=== PATIENT | female | born 1955 | race Caucasian/White ===

== ENCOUNTER 2016-10-15 10:28 | Emergency (ER) | payer OTHER ==
[2016-10-15 11:24] VITALS: BP 147/83
[2016-10-15] MEDS ORDERED: cefTRIAXone VIAL(*) 250 MG VIAL IM ONE (11:45)
[2016-10-15] MEDS ORDERED: Lidocaine 1%* 5 ML VIAL INJ ONE (11:46)
--- NOTE | 2016-10-15 11:47 | UC ---
Bite Injury/Animal HPI - HPI Summary HPI Summary: pt reports being bit by her own dog on 10/13/16 to left distal foot and toe # 4. Pt states that the dogs vaccinations are UTD and that her tetanus is UTD, . Pt c/o erythema, tenderness, that is worsening since onset to top of left foot. Also, c/ o blistering and erythema to left 4th toe. 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 Available for Observation: Yes - Risk Factors Infection/Sepsis Risk Factors: Delay in Initial Treatment - Allergies/Home Medications Allergies/Adverse Reactions: Allergies Allergy/AdvReac Type Severity Reaction Status Date / Time Sulfa Antibiotics Allergy Hives Verified 10/15/16 11:24 Home Medications: Home Medications Esomeprazole Magnesium [Nexium 24Hr] 20 mg PO DAILY PRN 10/15/16 [History Confirmed 10/15/16] Ibuprofen TAB* [Advil TAB*] 400 mg PO Q6H PRN 10/15/16 [History Confirmed ] PMH/Surg Hx/FS Hx/Imm Hx Previously Healthy: Yes - Surgical History Surgical History: Yes Surgery Procedure, Year, and Place: NECK SX X 2 - Family History Known Family History: Positive: Other - positive [facility] for skin abrasion - Social History Alcohol Use: Rare Substance Use Type: None Smoking Status (MU): Never Smoked Tobacco - Immunization History Most Recent Tetanus Shot: 07/2015 Review of Systems Constitutional: Negative Skin: Other - erythema, tenderness, blisters Eyes: Negative ENT: Negative Respiratory: Negative Cardiovascular: Negative Gastrointestinal: Negative Genitourinary: Negative Motor: Negative Neurovascular: Negative Musculoskeletal: Arthralgia, Edema, Myalgia Neurological: Negative Psychological: Negative All Other Systems Reviewed And Are Negative: Yes Physical Exam Triage Information Reviewed: Yes Appearance: Well-Appearing Vital Signs: Initial Vital Signs Temp 99.1 F 10/15/16 11:16 Pulse 77 10/15/16 11:16 Resp 16 10/15/16 11:16 BP 147/83 10/15/16 11:16 Pulse Ox 98 10/15/16 11:16 Vital Signs Reviewed: Yes Eye Exam: Normal ENT Exam: Normal Neck exam: Normal Respiratory Exam: Normal Cardiovascular Exam: Normal Musculoskeletal Exam: Other Musculoskeletal: Positive: Edema @ - left foot, Other: - erythema, blistering left 4th Neurological Exam: Normal Psychological Exam: Normal Skin Exam: Other - erythema, swelling, tenderness, blistering left 4th toe, Bite Injury Course/Dx - Differential Dx/Diagnosis Differential Diagnosis/HQI/PQRI: Fracture, Puncture, Superficial Infection Provider Diagnoses: dog bite,. cellulitis Discharge - Discharge Plan Condition: Stable Disposition: HOME Prescriptions: Amoxicillin/Clavulanate TAB* [Augmentin TAB 875*] 875 mg PO BID #21 tab Patient Education Materials: Animal Bite (ED), Cellulitis (ED) Referrals: Emmy Mary MD [Primary Care Provider] - 1 Day
== END 2016-10-15 12:31 | disposition home or self-care (01) ==
LOC: UCCORT 10:28
DX: S91.352A Open bite, left foot, initial encounter (principal); W54.0XXA Bitten by dog, initial encounter; Y92.9 Unspecified place or not applicable; L03.116 Cellulitis of left lower limb
CPT/HCPCS: 96372; 99202; G0463; J0696

== ENCOUNTER 2016-10-16 09:03 | Emergency (ER) | payer OTHER ==
[2016-10-16 09:51] VITALS: BP 134/72
--- NOTE | 2016-10-16 10:32 | UC ---
HPI Wound/Suture Re-check - HPI Summary HPI Summary: 61 yo female see here yesterday with an infected dog bite to left middle toe Had shot of rocefin Has had 2 doses of augmentin no fever or chills since her prior vist no worsening of pain/redness - History Of Current Complaint Chief Complaint: UCSkin Stated Complaint: RE-CK TOE INFECTION/CELLULITIS Time Seen by Provider: 10/16/16 10:12 Hx Obtained From: Patient Onset/Duration: Sudden Onset, Lasting Days Severity: Moderate Pain Intensity: 4 Pain Scale Used: 0-10 Numeric - Allergies/Home Medications Allergies/Adverse Reactions: Allergies Allergy/AdvReac Type Severity Reaction Status Date / Time Sulfa Antibiotics Allergy Hives Verified 10/16/16 09:51 PMH/Surg Hx/FS Hx/Imm Hx Previously Healthy: Yes - Surgical History Surgical History: Yes Surgery Procedure, Year, and Place: NECK SX X 2 - Family History Known Family History: Positive: Hypertension, Other - positive [facility] for skin abrasion - Social History Alcohol Use: Rare Substance Use Type: None Smoking Status (MU): Never Smoked Tobacco - Immunization History Most Recent Tetanus Shot: 07/2015 Review of Systems Constitutional: Negative Skin: Negative Eyes: Negative ENT: Negative Respiratory: Negative Cardiovascular: Negative Gastrointestinal: Negative Genitourinary: Negative Motor: Negative Neurovascular: Negative Musculoskeletal: Arthralgia Neurological: Negative Psychological: Negative All Other Systems Reviewed And Are Negative: Yes Physical Exam Triage Information Reviewed: Yes Appearance: Well-Appearing, No Pain Distress, Well-Nourished Vital Signs: Initial Vital Signs Temp 98.4 F 10/16/16 09:49 Pulse 86 10/16/16 09:49 Resp 14 10/16/16 09:49 BP 134/72 10/16/16 09:49 Pulse Ox 99 10/16/16 09:49 Vital Signs Reviewed: Yes Eyes: Positive: Conjunctiva Clear ENT: Positive: Hearing grossly normal. Negative: Nasal congestion, Nasal drainage, Trismus, Muffled/hoarse voice Neck: Positive: Nontender, No Lymphadenopathy Respiratory: Positive: Lungs clear, Normal breath sounds, No respiratory distress Cardiovascular: Positive: RRR, No Murmur Neurological: Positive: Alert Psychological Exam: Normal Course/Dx - Course Course Of Treatment: xr (-) for fx. aware of continued need for close follow up - Differential Dx - Laceration/Wound Provider Diagnoses: cellulitis left food. infected dog bite Discharge - Discharge Plan Condition: Stable Disposition: HOME Patient Education Materials: Cellulitis (ED) Referrals: Usman CAMACHO,Emmy [Primary Care Provider] - 1 Day Additional Instructions: continue current treatment recheck in 24-48 hours recheck sooner if symptoms worsen Images Feet (Multiple View): 1 - dorsum left foot 2 - toe bright red 3 - PW 4 - dorsum of foot red and swollen to this point
--- NOTE | 2016-10-16 10:44 | RAD ---
Indication: Dog bite to the left foot third digit. 3 views of the left foot demonstrates no fracture. No other bone or joint abnormality is identified. IMPRESSION: Soft tissue swelling without evidence of fracture.
== END 2016-10-16 10:56 | disposition home or self-care (01) ==
LOC: UCCORT 09:03
DX: S91.332D Puncture wound without foreign body, left foot, subsequent encounter (principal); L03.116 Cellulitis of left lower limb; W54.0XXD Bitten by dog, subsequent encounter; Z88.2 Allergy status to sulfonamides
CPT/HCPCS: 99211; G0463

== ENCOUNTER 2017-02-25 08:26 | Emergency (ER) | payer OTHER ==
[2017-02-25 08:49] VITALS: BP 142/69
--- NOTE | 2017-02-25 09:26 | UC ---
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 Her doctor changed the SHOAIB inhibitor to lisinirpil she was taking previously in Jan b/c of a dry annoying cough. Cough has progressed and she does not believe it was due to bradley BP med. Dry cough, not productive. no congestion. here with her . has to take a 3 hr plane trip in 3 days and she is concerned b/c terrible coughing spells she gets in to. + wheezing. has a nebulizer at home. she has had to use albuterol for similar sx in past with good results. she was hoping for albuterol rx. - History of Current Complaint Chief Complaint: UCRespiratory Stated Complaint: COUGH Time Seen by Provider: 02/25/17 09:09 Hx Last Menstrual Period: age 50 - Allergies/Home Medications Allergies/Adverse Reactions: Allergies Allergy/AdvReac Type Severity Reaction Status Date / Time Sulfa Antibiotics Allergy Hives Verified 02/25/17 08:49 Home Medications: Home Medications Losartan TAB* [Cozaar TAB*] 25 mg PO QPM 02/25/17 [History Confirmed 02/25/17] Pantoprazole Sodium [Protonix] 40 mg PO QAM 02/25/17 [History Confirmed 02/25/17 ] Ranitidine HCl [Zantac] 150 mg PO QPM 02/25/17 [History Confirmed 02/25/17] PMH/Surg Hx/FS Hx/Imm Hx Previously Healthy: Yes Cardiovascular History: Hypertension GI/ History: Gastroesophageal Reflux - Surgical History Surgical History: Yes Surgery Procedure, Year, and Place: NECK SX X 2 - Family History Known Family History: Positive: Hypertension, Other - positive [facility] for skin abrasion - Social History Alcohol Use: Rare Substance Use Type: None Smoking Status (MU): Never Smoked Tobacco - Immunization History Most Recent Tetanus Shot: 07/2015 Review of Systems Constitutional: Fatigue Skin: Negative Eyes: Negative ENT: Negative Respiratory: Cough Cardiovascular: Negative Gastrointestinal: Negative Genitourinary: Negative Motor: Negative Neurovascular: Negative Musculoskeletal: Negative Neurological: Negative Psychological: Negative Is Patient Immunocompromised?: No All Other Systems Reviewed And Are Negative: Yes Physical Exam Triage Information Reviewed: Yes Appearance: No Pain Distress - really very pleasant. here with her ., Well-Nourished Vital Signs: Initial Vital Signs Temp 98.4 F 02/25/17 08:43 Pulse 80 02/25/17 08:43 Resp 18 02/25/17 08:43 BP 142/69 02/25/17 08:43 Pulse Ox 99 02/25/17 08:43 Vital Signs Reviewed: Yes Eye Exam: Normal ENT: Positive: Hearing grossly normal, Pharyngeal erythema - +PND, no exudate, TMs normal. Negative: Tonsillar swelling, Tonsillar exudate Dental Exam: Normal Neck exam: Normal Neck: Positive: Supple, Nontender, No Lymphadenopathy Respiratory: Positive: Lungs clear, No respiratory distress, No accessory muscle use, Decreased breath sounds. Negative: Crackles, Rhonchi, Stridor, Wheezing Cardiovascular Exam: Normal Cardiovascular: Positive: RRR, No Murmur, Pulses Normal Abdominal Exam: Normal Abdomen Description: Positive: Nontender, Soft Musculoskeletal Exam: Normal Neurological Exam: Normal Psychological Exam: Normal Skin Exam: Normal UC Diagnostic Evaluation - Laboratory O2 Sat by Pulse Oximetry: 99 Respiratory Course/Dx - Differential Dx/Diagnosis Differential Diagnosis/HQI/PQRI: Asthma, Bronchitis, Lower Resp Infection, Sinusitis Provider Diagnoses: bronchitis Discharge - Discharge Plan Condition: Stable Disposition: HOME Prescriptions: Albuterol 2.5MG/3ML (0.083%)* [Ventolin 2.5 MG/3 ML NEB.KURT*] 2.5 mg INH Q4H PRN #1 neb.kurt PRN Reason: Cough Albuterol HFA INHALER* [Ventolin HFA Inhaler*] 2 puff INH Q4H PRN #1 mdi PRN Reason: Cough Benzonatate CAP* [Tessalon 100 MG CAP*] 100 mg PO TID PRN #30 cap PRN Reason: Cough Methylprednisolone [Medrol Dosepak 4 MG*] 4 mg PO DAILY #1 honey Patient Education Materials: Acute Bronchitis (ED) Referrals: Emmy Mary MD [Primary Care Provider] - 5 Days Additional Instructions: We discussed risks of prednisone including but not limited to anxiety, agitation , insomnia, GI upset, elevated blood pressures and blood sugar readings, adrenal crisis and avascular necrosis of the hip. If your symptoms worsen while you are on your trip, you can go to an Urgent Care or ER whereever you are. I would recommend a chest xray if your symptoms persist. Drink lots of fluids and get plenty of water.
== END 2017-02-25 09:48 | disposition home or self-care (01) ==
LOC: UCCORT 08:26
DX: J40 Bronchitis, not specified as acute or chronic (principal); I10 Essential (primary) hypertension; Z88.2 Allergy status to sulfonamides; Z88.1 Allergy status to other antibiotic agents
CPT/HCPCS: 99212; G0463

== ENCOUNTER 2018-08-06 08:38 | Emergency (ER) | payer BC, OTHER ==
[2018-08-06 09:07] VITALS: BP 135/84
--- NOTE | 2018-08-06 09:52 | UC ---
Respiratory Complaint HPI - HPI Summary HPI Summary: cough x 1 week cough is productive, with yellow sputum , worse at night , nasal congestion, pnd, wheezing chest tightness, no sore throat, no fever, no chills - History of Current Complaint Chief Complaint: UCRespiratory Stated Complaint: COUGH,ST Time Seen by Provider: 08/06/18 09:06 Hx Obtained From: Patient Hx Last Menstrual Period: age 50 Onset/Duration: Gradual Onset, Lasting Weeks - 1, Still Present Timing: Constant Severity Initially: Moderate Severity Currently: Moderate Pain Intensity: 3 Pain Scale Used: 0-10 Numeric Character: Cough: Productive Aggravating Factors: Exertion, Deep Breaths Alleviating Factors: Nothing Associated Signs And Symptoms: Positive: Wheezing, URI, Nasal Congestion. Negative: Dyspnea, Fever, Hemoptysis, Dizziness, Calf Pain, Calf Swelling - Allergies/Home Medications Allergies/Adverse Reactions: Allergies Allergy/AdvReac Type Severity Reaction Status Date / Time Sulfa (Sulfonamide Allergy Hives Verified 08/06/18 09:07 Antibiotics) Home Medications: Home Medications Irbesartan 40 mg PO DAILY 08/06/18 [History Confirmed 08/06/18] PMH/Surg Hx/FS Hx/Imm Hx - Additional Past Medical History Additional PMH: chronic lymphocitic leukemia - Surgical History Surgical History: Yes Surgery Procedure, Year, and Place: NECK SX X 2. [email or web address] - Family History Known Family History: Positive: Hypertension, Other - positive [facility] for skin abrasion - Social History Alcohol Use: Rare Substance Use Type: None Smoking Status (MU): Never Smoked Tobacco - Immunization History Most Recent Tetanus Shot: 07/2015 Review of Systems All Other Systems Reviewed And Are Negative: Yes Constitutional: Positive: Negative Skin: Positive: Negative Eyes: Positive: Negative ENT: Positive: Nasal Discharge Respiratory: Positive: Cough Cardiovascular: Positive: Negative Is Patient Immunocompromised?: No Physical Exam Triage Information Reviewed: Yes Appearance: Well-Appearing, No Pain Distress, Well-Nourished Vital Signs: Initial Vital Signs Temp 98.2 F 08/06/18 09:03 Pulse 92 08/06/18 09:03 Resp 18 08/06/18 09:03 BP 135/84 08/06/18 09:03 Pulse Ox 99 08/06/18 09:03 Vital Signs Reviewed: Yes Eye Exam: Normal Eyes: Positive: Conjunctiva Clear ENT: Positive: Normal ENT inspection, Hearing grossly normal, Pharynx normal, Nasal congestion Neck: Positive: Supple, Nontender, No Lymphadenopathy Respiratory: Positive: Chest non-tender, Lungs clear, Normal breath sounds Cardiovascular: Positive: RRR, No Murmur, Pulses Normal Skin Exam: Normal Respiratory Course/Dx - Differential Dx/Diagnosis Provider Diagnosis: Bronchitis Discharge - Sign-Out/Discharge Documenting (check all that apply): Patient Departure All imaging exams completed and their final reports reviewed: No Studies - Discharge Plan Condition: Stable Disposition: HOME Prescriptions: Azithromycin TAB* [Zithromax TAB (Z-MANE) 250 mg #6 tabs] 2 tab PO .TODAY, THEN 1 DAILY #1 mane Benzonatate CAP* [Tessalon 100 MG CAP*] 100 mg PO TID PRN #21 cap PRN Reason: Cough predniSONE [Prednisone 20 MG TAB] 20 mg PO BID #10 tablet Patient Education Materials: Acute Bronchitis (ED) Referrals: Emmy Mary MD [Primary Care Provider] - 7 Days - Billing Disposition and Condition Condition: STABLE Disposition: Home
== END 2018-08-06 09:23 | disposition home or self-care (01) ==
LOC: UCCORT 08:38
DX: J40 Bronchitis, not specified as acute or chronic (principal); R06.2 Wheezing; R09.81 Nasal congestion; Z88.2 Allergy status to sulfonamides; Z86.2 Personal history of diseases of the blood and blood-forming organs and certain disorders involving the immune mechanism
CPT/HCPCS: 99212; G0463